=== PATIENT | female | born 1930 | race Caucasian/White ===

== ENCOUNTER 2019-03-06 08:52 | Emergency (ER) | payer MEDICARE ==
[2019-03-06] MEDS ORDERED: TETANUS/DIPHTHERIA TOXOID [ADULT] 0.5 ML VIAL IM ONE (09:30)
[2019-03-06] MEDS ORDERED: CLINDAMYCIN HCL 150 MG CAP ONE (09:30)
== END 2019-03-06 10:07 | disposition home or self-care (01) ==
LOC: EDH 08:52
DX: L03.011 Cellulitis of right finger (principal)
CPT/HCPCS: 73130; 90471; 90714